=== PATIENT | male | born 1990 | race Caucasian/White ===

== ENCOUNTER 2022-05-27 23:34 | Emergency (ER) | payer BC, SELFPAY ==
[2022-05-27 23:34] VITALS: BMI 28.5
[2022-05-27 23:37] VITALS: O2SAT 96
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
[2022-05-27 23:38] VITALS: BP 184/116; PULSE 120; RESP 22; TEMP 36.6; O2SAT 92
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
[2022-05-28 00:04] LABS: Anion Gap 37.6 (5-19); Blood Urea Nitrogen 10 mg/dL (6-20); Calcium 9.6 mg/dL (8.5-10.5); Carbon Dioxide 11 mmol/L (22-29); Chloride 93 mmol/L (98-107); Glomerular Filtration Rate 59.5 mL/min (90-130); Glucose 166 mg/dL (65-115); Osmolality Calculated 289 mOsm/kg (285-295); Potassium 3.6 mmol/L (3.5-5.1); Sodium 138 mmol/L (136-145)
[2022-05-28 00:09] LABS: Alcohol Level < 10 mg/dL (0-10)
[2022-05-28] MEDS: iohexol 350 mg/mL 500 mL Btl (per mL) IV (00:09)
--- NOTE | 2022-05-28 00:19 | PC.NURSE ---
Pt. refuses to get the tetanus shot and states that he does not believe that he needs it.
[2022-05-28 00:20] LABS: Hematocrit 52.1 % (42.0-52.0); Hemoglobin 16.8 g/dL (11.7-16.6); Mean Corpuscular HGB Conc 32.2 g/dL (30.0-36.0); Mean Corpuscular Volume 89.8 fl (80-94); Mean Platelet Volume 10.3 fL (7.4-10.4); Platelet Count 438 10^3/cmm (130-400); Red Cell Distribution Width 12.4 % (12.1-15.1)
[2022-05-28 00:21] LABS: Slide Review Slide Review Perform
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
[2022-05-28 00:28] LABS: Total Cells Counted 100 (0-100)
[2022-05-28 00:34] LABS: Absolute Segmented Neutrophil 11.5 10/cmm (1.6-7.1); Lymphocytes 10 %; Segmented Neutrophils 64 %
[2022-05-28 00:35] LABS: Absolute Eosinophils 0.3 10^3/cmm (0.0-0.7); Eosinophils 2 %; Lymphocytes Absolute 3.8 10^3/cmm (1.2-3.4); Monocytes Absolute 1.6 10^3/cmm (0.1-0.6)
[2022-05-28 00:36] LABS: Absolute Neutrophil 11.5 10^3/cmm (1.4-6.5); Platelet Estimate Increased (Normal)
[2022-05-28 00:44] VITALS: BP 150/90; PULSE 68; RESP 18; O2SAT 94
== END 2022-05-28 01:28 | disposition home or self-care (01) ==
PROVIDERS: Emergency Provider Emergency Medicine; PCP Family Medicine Adult Medicine
DX: S00.81XA Abrasion of other part of head, initial encounter (principal); Y08.02XA Assault by strike by baseball bat, initial encounter
CPT/HCPCS: 70450; 70486; 71045; 71260; 72125; 74177; 80048; 80307; 85007; 85025; 99285; Q9967